=== PATIENT | female | born 1970 | race Caucasian/White ===

== ENCOUNTER 2018-01-09 11:22 | Emergency (ER) | payer MEDICAID, SELFPAY ==
[2018-01-09 11:23] VITALS: BP 157/113; PULSE 101; RESP 18; TEMP 36.6; O2SAT 99; BMI 28.1
--- NOTE | 2018-01-09 11:38 | CT_ITS ---
STUDY: CT ABDOMEN AND PELVIS WITHOUT CONTRAST REASON FOR EXAM: Female, 47 years old. 3 day history of right flank pain and hematuria. History of stones. RADIATION DOSAGE (If Supplied By Facility): CTDIvol = ( 11.63 ) mGy, DLP = ( 641.92 ) mGycm TECHNIQUE: Transaxial images were obtained from the dome of the diaphragm to the symphysis pubis without oral contrast, and without intravenous contrast. Sagittal and coronal images were reconstructed. Individualized dose optimization techniques were used for this CT. COMPARISON: Comparison is made with prior study dated July 02, 2014. FINDINGS: The visualized lung bases are unremarkable. Coronary artery calcification. Normal liver. There are surgical clips in the gallbladder fossa consistent with a prior cholecystectomy. Normal spleen. Normal pancreas. Normal bilateral adrenal glands. Normal right kidney. Normal left kidney. Moderate sized hiatal hernia. Normal small intestine. There are multiple colonic diverticula consistent with diverticulosis. There are surgical clips in the region of the appendix consistent with a prior appendectomy. Normal abdominal aorta. Normal inferior vena cava. Normal retroperitoneum. Normal urinary bladder. There is absence of the uterus consistent with a prior hysterectomy. Phleboliths are seen in the left hemipelvis. There is a small umbilical hernia containing fat. Normal osseous structures. CT/Abdomen/Pelvis without Cont IMPRESSION: Moderate sized hiatal hernia. No obstructive uropathy is seen. Electronically Signed: Jaya Mckeon MD at 12:30 EDT Tel [phone], Service support ,
[2018-01-09] MEDS: Ondansetron 4 MG/2 ML Vial IV (11:55)
[2018-01-09] MEDS: Ketorolac 30 MG/ML Syringe IV (11:55)
[2018-01-09] MEDS: HYDROmorphone 1 MG/ML Syringe IV (11:55)
[2018-01-09] MEDS: 0.9% Normal Saline 1,000 ML 125 ML IV (11:55)
[2018-01-09 12:14] LABS: Absolute Lymphocyte Count 2.05 X10^3/ul (0.83-4.51); Absolute Neutrophil Count 3.9 X10^3/uL (2.0-7.7); Basophil# 0.02 X10^3/uL; Basophil% 0.3 % (0-1); Eosinophil# 0.19 X10^3/uL; Eosinophils% 2.9 % (0-5); Hemoglobin 12.9 g/dl (12.0-15.0); Lymphocyte # 2.05 X10^3/ul (4.0); Lymphocyte % 30.8 % (19-41); Mean Corp Hgb Conc 33.1 g/gl (32-36); Mean Corpuscular Hgb 29.2 pg (27.0-32.0); Mean Corpuscular Volume 88.2 fL (81-99); Mean Platelet Vol. 10.2 fl (6.2-12.0); Monocyte# 0.47 X10^3/uL; Monocyte% 7.1 % (0-10); Neutrophil % 58.4 % (47-70); Platelet Count 329 K/mm3 (150-450); RBC Distribution Width CV 13.5 % (11.6-14.6); Red Blood Count 4.42 M/mm3 (4.2-5.4); White Blood Count 6.7 K/mm3 (4.4-11.0)
[2018-01-09 12:14] LABS: Bacteria 0 SEEN /hpf (None Seen); Mucous, Urine 0 SEEN /hpf (<or=2+); White Blood Cells 0 SEEN /hpf (0-5)
[2018-01-09 12:18] LABS: Color, Urine Straw (Yellow); Glucose, Dipstick Normal (Normal); Ketone-Dipstick Negative (Negative); Leukocyte Esterase-Dipstick Negative /ul (Negative); Nitrite-Dipstick Negative (Negative); Occult Blood-Urine Negative /ul (Negative); Protein-Dipstick Negative (Negative); Specific Gravity, Urine 1.005 (1.002-1.030); Urine Bilirubin Dipstick Negative (Negative); Urine Clarity Clear (Clear); Urine Urobilinogen Normal (Normal)
[2018-01-09 12:19] LABS: Anion Gap 8 (5-15); BUN 12 mg/dL (7-18); Calcium,Total 8.6 mg/dL (8.5-10.1); Chloride 109 mmol/L (98-107); Creatinine, Serum 0.66 mg/dL (0.55-1.02); EST Glomerular Filtration Rate 100 mL/min (>60); Est Glom Filt Rate - Afr Amer 121 mL/min (>60); Estimated Creatinine Clearance 115.24 ml/min; Glucose 92 mg/dL (74-106); Sodium Level 142 mmol/L (136-145)
[2018-01-09 12:30] LABS: POSITIVE COUNT NO; POSITIVE DIFFERENTIAL NO; POSITIVE MORPHOLOGY NO
[2018-01-09 12:48] LABS: Red Blood Cells-Urine 0-5 SEEN /hpf (0-5); Squamous Epithelial Cells - UA 0-5 SEEN /hpf (5-10)
--- NOTE | 2018-01-09 13:17 | ED.VISSUMM ---
- ER Visit Summary Date of Service: 01/09/18 Chief Complaint: [Right flank pain] History of Present Illness: The patient is a 47 F [presents the emergency department complaint of right-sided flank pain that started initially about 2 weeks ago. Patient states that the pain was somewhat mild at first. Patient 4 days ago developed blood in her urine while she was camping. Patient also developed subjective fever and sweats. Patient describes a vice gripping the right side of her mid back into her abdomen. Patient does have a history of kidney stones. Patient has history of chronic back pain. Patient denies any nausea or vomiting with this. She denies any blood in her stool or black tarry stools. Currently rates her pain a 10 out of 10. Patient did drive herself in.] Patient has had prior appendectomy, cholecystectomy, and hysterectomy. Physical Examination: [HEENT-PERRLA, EOMI. Cranial nerves II through XII grossly intact. TMs clear. Mucous membranes moist. No adenopathy. Cardiovascular-regular rate and rhythm without murmur or ectopy Lungs-clear to auscultation, chest wall stable without crepitus or subcu emphysema Abdomen-normoactive bowel sounds, soft. Patient has tenderness to palpation over the right lower quadrant patient also with tenderness over the right flank. There is no rebound, rigidity, or perineal signs. Extremities-intact ?4, normal range of motion, normal pulses, atraumatic] Test Results: [CBC with differential obtained showed a normal white blood cell count. Chemistries were normal. Urinalysis was normal. CT flank showed a hiatal hernia otherwise nothing acute.] Emergency Department Course and Treatment: [Patient was medicated with Toradol as well as Dilaudid and Zofran IV.] Treatment Plan: [Patient will be given a prescription for [place] and advised to follow-up with primary care physician 3-5 days] Disposition: [Discharged home in stable condition]. Patient advised to return if worsening pain, fever, vomiting, or condition should worsen anyway. Impression: [Right flank pain-etiology uncertain] This note was generated with [employer] dictation software. It may contain incorrect words, spelling, and punctuation that were not noted in review of the chart prior to signing ED Disposition - Plan for ED Patient: Chief Complaint: Flank Pain Referrals: Dottie Mascorro [Primary Care Provider] -
--- NOTE | 2018-01-09 13:20 | ED.DCSUM_ITS ---
- ER Visit Summary Date of Service: 01/09/18 Chief Complaint: [Right flank pain] History of Present Illness: The patient is a 47 F [presents the emergency department complaint of right-sided flank pain that started initially about 2 weeks ago. Patient states that the pain was somewhat mild at first. Patient 4 days ago developed blood in her urine while she was camping. Patient also developed subjective fever and sweats. Patient describes a vice gripping the right side of her mid back into her abdomen. Patient does have a history of kidney stones. Patient has history of chronic back pain. Patient denies any nausea or vomiting with this. She denies any blood in her stool or black tarry stools. Currently rates her pain a 10 out of 10. Patient did drive herself in. ] Patient has had prior appendectomy, cholecystectomy, and hysterectomy. Physical Examination: [HEENT-PERRLA, EOMI. Cranial nerves II through XII grossly intact. TMs clear. Mucous membranes moist. No adenopathy. Cardiovascular-regular rate and rhythm without murmur or ectopy Lungs-clear to auscultation, chest wall stable without crepitus or subcu emphysema Abdomen-normoactive bowel sounds, soft. Patient has tenderness to palpation over the right lower quadrant patient also with tenderness over the right flank. There is no rebound, rigidity, or perineal signs. Extremities-intact ?4, normal range of motion, normal pulses, atraumatic] Test Results: [CBC with differential obtained showed a normal white blood cell count. Chemistries were normal. Urinalysis was normal. CT flank showed a hiatal hernia otherwise nothing acute.] Emergency Department Course and Treatment: [Patient was medicated with Toradol as well as Dilaudid and Zofran IV.] Treatment Plan: [Patient will be given a prescription for [place] and advised to follow-up with primary care physician 3-5 days] Disposition: [Discharged home in stable condition]. Patient advised to return if worsening pain, fever, vomiting, or condition should worsen anyway. Impression: [Right flank pain-etiology uncertain] This note was generated with [employer] dictation software. It may contain incorrect words, spelling, and punctuation that were not noted in review of the chart prior to signing ED Disposition - Plan for ED Patient: Chief Complaint: Flank Pain Referrals: Dottie Mascorro [Primary Care Provider] -
--- NOTE | 2018-01-09 13:20 | ED.DEP ---
ED Disposition - Plan for ED Patient: Chief Complaint: Flank Pain Instructions: ED Flank Pain Uncertain Cause Prescriptions: Hydrocodone/Acetaminophen [[place] 5-325 Tablet] 1 - 2 ea PO 4X/DAY PRN PRN 5 Days #20 tab PRN Reason: Pain Referrals: Dottie Mascorro [Primary Care Provider] - 3-5 Days
--- NOTE | 2018-01-09 13:23 | DCINST.ED_ITS ---
ED Disposition - Plan for ED Patient: Chief Complaint: Flank Pain Instructions: ED Flank Pain Uncertain Cause Prescriptions: Hydrocodone/Acetaminophen [[place] 5-325 Tablet] 1 - 2 ea PO 4X/DAY PRN PRN 5 Days #20 tab PRN Reason: Pain Referrals: Dottie Mascorro [Primary Care Provider] - 3-5 Days
[2018-01-09 13:36] VITALS: BP 135/68; PULSE 61; RESP 18; O2SAT 98
== END 2018-01-09 13:56 | disposition home or self-care (01) ==
PROVIDERS: Emergency Provider Emergency Medicine; Family Provider Family Medicine; PCP Family Medicine
DX: R10.31 Right lower quadrant pain (principal); K44.9 Diaphragmatic hernia without obstruction or gangrene; Z87.442 Personal history of urinary calculi; Z90.49 Acquired absence of other specified parts of digestive tract; Z90.710 Acquired absence of both cervix and uterus
CPT/HCPCS: 74176; 80048; 81001; 85025; 96361; 96374; 96375; 99283; J7030; A4216; J2405

== ENCOUNTER → 2019-12-02 21:31 | Outpatient (CLI) | payer OTHER, SELFPAY ==
[2019-12-02 17:40] VITALS: BMI 29.0
== END ==
PROVIDERS: PCP Family Medicine; Referring Provider Nurse Practitioner; Visit Provider Nurse Practitioner
DX: N30.90 Cystitis, unspecified without hematuria (principal)
CPT/HCPCS: 87086; 87088; 87186

== ENCOUNTER → 2020-02-24 21:21 | Outpatient (CLI) | payer OTHER, SELFPAY ==
[2020-02-24 14:58] VITALS: BMI 29.0
[2020-02-24 21:55] LABS: Anion Gap 7 (5-15); BUN 19 mg/dL (7-18); BUN/Creat Ratio 19.5 RATIO (10-20); Calcium,Total 9.1 mg/dL (8.5-10.1); Chloride 100 mmol/L (98-107); Creatinine, Serum 0.97 mg/dL (0.55-1.02); EST Glomerular Filtration Rate 64 mL/min (>60); Est Glom Filt Rate - Afr Amer 77 mL/min (>60); Glucose 120 mg/dL (74-106); Potassium 2.7 mmol/L (3.5-5.1); Sodium Level 135 mmol/L (136-145)
== END ==
PROVIDERS: PCP Family Medicine; Referring Provider Nurse Practitioner; Visit Provider Nurse Practitioner
DX: E87.6 Hypokalemia (principal)
CPT/HCPCS: 80048

== ENCOUNTER → 2020-03-09 | Outpatient (CLI) | payer OTHER, SELFPAY ==
[2020-03-09 22:25] LABS: AST(SGOT) 10 U/L (15-37); Alanine Aminotransfer ALT/SGPT 19 U/L (13-56); Albumin, Serum 3.5 g/dL (3.2-5.0); Alkaline Phosphatase 47 U/L (45-117); Anion Gap 7 (5-15); BUN 14 mg/dL (7-18); BUN/Creat Ratio 16.1 RATIO (10-20); Calcium,Total 9.1 mg/dL (8.5-10.1); Chloride 111 mmol/L (98-107); Creatinine, Serum 0.87 mg/dL (0.55-1.02); EST Glomerular Filtration Rate 73 mL/min (>60); Est Glom Filt Rate - Afr Amer 88 mL/min (>60); Globulin 3.5 g/dL (2.2-4.2); Glucose 102 mg/dL (74-106); Potassium 4.1 mmol/L (3.5-5.1); Sodium Level 143 mmol/L (136-145)
== END | disposition home or self-care (01) ==
PROVIDERS: PCP Family Medicine; Referring Provider Nurse Practitioner; Visit Provider Nurse Practitioner
DX: E87.6 Hypokalemia (principal)
CPT/HCPCS: 80053

== ENCOUNTER → 2020-07-20 21:41 | Outpatient (CLI) | payer OTHER, SELFPAY ==
[2020-05-06 16:16] VITALS: BMI 28.0
[2020-07-20 21:53] LABS: Absolute Lymphocyte Count 2.83 X10^3/uL (0.83-4.51); Absolute Neutrophil Count 4.9 X10^3/uL (2.0-7.7); Basophil# 0.05 X10^3/uL; Basophil% 0.6 % (0-1); Eosinophil# 0.23 X10^3/uL; Eosinophils% 2.6 % (0-5); Hematocrit 36.8 % (37-47); Hemoglobin 11.5 g/dL (12.0-15.0); Lymphocyte # 2.83 X10^3/ul (4.0); Lymphocyte % 32.5 % (19-41); Mean Corp Hgb Conc 31.3 g/dL (32-36); Mean Corpuscular Hgb 25.6 pg (27.0-32.0); Monocyte# 0.62 X10^3/uL; Monocyte% 7.1 % (0-10); NRBC Flagged by Analyzer 0 % (0-5); Neutrophil # 4.94 X10^3/uL (2.7-7.7); Neutrophil % 56.9 % (47-70); Platelet Count 403 K/mm3 (150-450); RBC Distribution Width CV 16.5 % (11.6-14.6); RBC Distribution Width SD 48.9 fl (35.1-43.9); Red Blood Count 4.49 M/mm3 (4.2-5.4); White Blood Count 8.7 K/mm3 (4.4-11.0)
[2020-07-20 22:14] LABS: AST(SGOT) 16 U/L (15-37); Alanine Aminotransfer ALT/SGPT 24 U/L (13-56); Albumin, Serum 3.5 g/dL (3.2-5.0); Alkaline Phosphatase 46 U/L (45-117); Amylase 34 U/L (25-115); Anion Gap 7 (5-15); BUN 15 mg/dL (7-18); BUN/Creat Ratio 17.6 RATIO (10-20); Calcium,Total 9.5 mg/dL (8.5-10.1); Chloride 107 mmol/L (98-107); Creatinine, Serum 0.85 mg/dL (0.55-1.02); EST Glomerular Filtration Rate 74 mL/min (>60); Est Glom Filt Rate - Afr Amer 90 mL/min (>60); Globulin 3.5 g/dL (2.2-4.2); Glucose 104 mg/dL (74-106); Lipase 112 U/L (73-393); Potassium 3.4 mmol/L (3.5-5.1); Sodium Level 140 mmol/L (136-145)
[2020-07-22 20:08] LABS: Endomysial Antibody IgA Negative (Negative)
[2020-07-22 20:36] LABS: Immunoglobulin A 232 mg/dL (87-352); t-Transglutaminase IgA <2 U/mL (0-3)
== END ==
PROVIDERS: Visit Provider Nurse Practitioner
DX: R10.31 Right lower quadrant pain (principal); A09 Infectious gastroenteritis and colitis, unspecified; E87.6 Hypokalemia
CPT/HCPCS: 80053; 82150; 82784; 83516; 83690; 85025; 86255; 87077; 87086; 87088; 87186

== ENCOUNTER → 2020-07-21 13:13 | Outpatient (CLI) | payer OTHER, SELFPAY ==
[2020-05-06 16:16] VITALS: BMI 28.0
== END ==
PROVIDERS: Visit Provider Nurse Practitioner
DX: A09 Infectious gastroenteritis and colitis, unspecified (principal); R10.31 Right lower quadrant pain
CPT/HCPCS: 82274; 83630; 87329; 87506

== ENCOUNTER → 2020-07-28 07:19 | Outpatient (CLI) | payer OTHER, SELFPAY ==
[2020-07-23 15:29] VITALS: BMI 28.0
--- NOTE | 2020-07-28 07:22 | CT_ITS ---
STUDY: CT ABDOMEN AND PELVIS WITH CONTRAST REASON FOR EXAM: Female, 50 years old. Diarrhea ,RLQ pain RADIATION DOSAGE (If Supplied By Facility): CTDIvol = ( 16.24 ) mGy, DLP = ( 902.76 ) mGycm TECHNIQUE: Transaxial images were obtained from the dome of the diaphragm to the symphysis pubis without oral contrast. Oral and amp; IV Readi-CAT and amp; 100mL Isovue-300 was administered. Sagittal and coronal images were reconstructed. Individualized dose optimization techniques were used for this CT. COMPARISON: 01/09/2018 FINDINGS: There are chronic interstitial fibrotic changes of the lung bases. The visualized portions of the heart are within normal limits. Normal liver. There are surgical clips in the gallbladder fossa consistent with a prior cholecystectomy. Normal spleen. Normal pancreas. Normal bilateral adrenal glands. No obstructive uropathy, simple 2 cm left renal cyst There is a hiatal hernia. Normal small intestine. Retained stool noted throughout the entirety of the colon. There are surgical clips in the region of the appendix consistent with a prior appendectomy. Normal abdominal aorta. Normal inferior vena cava. Normal retroperitoneum. Normal urinary bladder. Below the patient has undergone a previous hysterectomy, there is a complex cystic structure in the left hemipelvis with hyperdense flash of contrast. This appears separate from bowel loops and I suspect may represent a internal iliac artery aneurysm. If there was no history of hysterectomy I would suspect that this would be an complex ovarian cyst but patient reports previous GEN/BSO. There is no associated free fluid Normal abdominal wall. Mild degenerative changes in the lumbar spine and pelvis CT/Abdomen/Pelvis WITH Contrast IMPRESSION: No suspicious solid organ abnormality, specifically no obstructive uropathy. There is a simple left renal cyst, no specific follow-up needed No free intraperitoneal fluid, air, or suspicious adenopathy Complex primarily cystic structure in the left hemipelvis measuring approximately 2.95 x 3.58 x 2.87 cm with a flash of hyperdense contrast. 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 It was present on the previous study of 2018 but that was performed without contrast. Ovary is etiology not likely as patient has undergone previous GEN/BSO Electronically Signed: Kwan Robledo MD at 8:17 EDT , Service support ,
== END ==
PROVIDERS: PCP Nurse Practitioner; Visit Provider Nurse Practitioner
DX: R10.31 Right lower quadrant pain (principal); A09 Infectious gastroenteritis and colitis, unspecified; R11.10 Vomiting, unspecified
CPT/HCPCS: 74177; Q9967

== ENCOUNTER → 2023-09-12 | Outpatient (CLI) | payer BC, SELFPAY | END | disposition home or self-care (01) | PROVIDERS: PCP Nurse Practitioner; Visit Provider Nurse Practitioner | DX: N30.90 Cystitis, unspecified without hematuria (principal) ==